=== PATIENT | female | born 1990 | race Caucasian/White ===

== ENCOUNTER 2019-11-21 05:45 | Day surgery (SDC) | payer OTHER ==
[~2019-11-21 05:45] MED LIST: MEDROL8 MG PO; PEPCID40 MG PO
[2019-11-21] MEDS ORDERED: NEXIUM 24HR20 MG PO (08:33)
== END 2019-11-21 09:50 | disposition home or self-care (01) ==
LOC: AMB-ENDOS 05:45
PROVIDERS: ATTEND Surgery
DX: K29.50 Unspecified chronic gastritis without bleeding (principal); Z20.828 Contact with and (suspected) exposure to other viral communicable diseases; K44.9 Diaphragmatic hernia without obstruction or gangrene